=== PATIENT | male | born 1985 | race Caucasian/White ===

== ENCOUNTER 2017-05-06 10:35 | Emergency (ER) | payer MEDICAID ==
[~2017-05-06] VITALS: Ht 165.1 cm; Wt 88.5 kg
[2017-05-06 10:56] VITALS: BP 152/103; Ht 165.1 cm; Wt 88.5 kg
== END 2017-05-06 12:15 | disposition home or self-care (01) ==
LOC: ED 10:35
DX: S96.911A Strain of unspecified muscle and tendon at ankle and foot level, right foot, initial encounter (principal); M21.40 Flat foot [pes planus] (acquired), unspecified foot; X50.9XXA Other and unspecified overexertion or strenuous movements or postures, initial encounter; Y93.02 Activity, running; Y99.8 Other external cause status; Y92.89 Other specified places as the place of occurrence of the external cause

== ENCOUNTER 2019-08-15 19:40 | Emergency (ER) | payer SELFPAY ==
[~2019-08-15] VITALS: Ht 165.1 cm; Wt 83.9 kg
[2019-08-15 20:00] VITALS: Ht 165.1 cm; Wt 83.9 kg
[2019-08-15 20:36] VITALS: BP 136/89
== END 2019-08-15 20:36 | disposition home or self-care (01) ==
LOC: ED 19:40
DX: U07.1 COVID-19 (principal); J12.89 Other viral pneumonia; J45.909 Unspecified asthma, uncomplicated; I10 Essential (primary) hypertension
CPT/HCPCS: Q0092; U0003-CS